=== PATIENT | male | born 1955 | race Caucasian/White ===

== ENCOUNTER 2016-09-09 07:13 | Day surgery (SDC) | payer OTHER ==
[~2016-09-09] VITALS: Ht 180.3 cm; Wt 68.9 kg
--- NOTE | ~2016-09-09 | O ---
[facility] [place] [address] OPERATIVE REPORT Name: SOPHY BARAJAS Room #: 150-16 [facility]..#: [id number] Admission: 09/09/16 Attend Phys: Corbin Regalado MD Discharge: Date of : 53 Report #: [id number] THIS REPORT FOR: //name// CC: [facility] physician/PCP Corbin Regalado DATE OF SERVICE: 09/09/2016 PREOPERATIVE DIAGNOSIS: Right calcaneus intraarticular fracture. POSTOPERATIVE DIAGNOSIS: Right calcaneus intraarticular fracture. PROCEDURE: Right calcaneus open reduction and internal fixation. SURGEON: Corbin Regalado MD ANESTHESIA: General. RADIOLOGY TEACHER: JACQUELINE Chadwick critical for positioning and the safe performance of the procedure. ANESTHESIA: General. ESTIMATED BLOOD LOSS: 5 mL. DRAINS: No drains. TOURNIQUET TIME: 45 minutes. DESCRIPTION OF PROCEDURE: The patient was brought to the operating room where he was placed under general anesthesia. Once under adequate general anesthesia, he was placed into a lateral decubitus position on the operative table. His right lower extremity was then prepped and draped in sterile manner. The extremity was elevated, exsanguinated, tourniquet placed to 300 mmHg. A lateral incision approximately 4 cm in length was then made over the sinus tarsi, this was dissected down through the soft tissue to the fascia and joint capsule overlying the subtalar joint. Exposure then was made of the posterior facet of the calcaneus and the fracture was identified and the hematoma was removed from the fracture site. A reduction maneuver was then achieved with a Joker elevator and subsequent fixation across the fracture site was achieved with a single 4.0 cannulated screw. Excellent alignment was achieved in this manner. There was a small amount of cartilage, which and this was removed approximately 3 mm in width in diameter. The Synthes subtalar calcaneal plate was then placed laterally and subsequent fixation across the anterior and posterior calcaneus was achieved with multiple locking screws through the small calcaneal lateral plate. Excellent fixation and alignment was achieved in this [facility] [address] [place] [address] OPERATIVE REPORT Name: SOPHY BARAJAS Room #: 150-16 [facility]..#: [id number] Admission: 09/09/16 Attend Phys: Corbin Regalado MD Discharge: Date of : 53 Report #: [id number] manner. Once complete, the wound was irrigated copiously. Fluoroscopy was used to verify the position to be satisfactory. The wound was irrigated copiously and closed with 2-0 Vicryl in the deep and subcutaneous tissues and keisha were used for the skin. The wounds were dressed with Xeroform, 4 x 4s, and a sterile soft compressive dressing was placed. Tourniquet was let down at approximately 45 minutes. A short-leg cast was placed. Toes were pink and warm with good capillary refill. There were no complications from the procedure. The patient tolerated the procedure well and went to the recovery room without incident. By: [id number] Corbin Regalado MD /nt
[~2016-09-09 07:13] MED LIST: IBUPROFEN 200200 M1 PO; PERCOCET PO
[2016-09-09 14:15] VITALS: BP 163/92
[2016-09-09 15:43] VITALS: BP 163/92
== END 2016-09-09 16:00 | disposition home or self-care (01) ==
LOC: OR 07:13 → TBA 07:13 → OR 12:00
DX: S92.061A Displaced intraarticular fracture of right calcaneus, initial encounter for closed fracture (principal); F17.210 Nicotine dependence, cigarettes, uncomplicated; Z98.890 Other specified postprocedural states; X58.XXXA Exposure to other specified factors, initial encounter; Y93.89 Activity, other specified; Y92.89 Other specified places as the place of occurrence of the external cause; Y99.8 Other external cause status
CPT/HCPCS: 50010; 50101; 50386; 51122; 51412; 55430; 56524; 57091; 62110; 62900; 70005